=== PATIENT | male | born 1995 | race Caucasian/White ===

== ENCOUNTER 2017-12-24 17:43 | Emergency (ER) | payer OTHER, MEDICAID ==
[~2017-12-24 17:43] MED LIST: ACET5SOL2 PO; AMO250L PO; BUS5 PO; CIPR-344 PO; LEVO75TA68 PO; MELA1TAB21 PO; OFLO5DRO45 OT; PRED-1 PO; RISP0.5T82 PO; TEST200V2 IM; [UNRECOGNIZED DRUG - CODE] PO
--- NOTE | 2017-12-24 18:03 | ER Report ---
History and Physical Time Seen By MD: 17:58 Hx. of Stated Complaint: PT PRESENTS WITH HIS DAD WHO STATES PT IS HAVING AN ALLERGIC REACTION TO UNKNOWN SUBSTANCE SINCE EARLY [place] MORNING. PT HAS BEEN HAVING HIVES WITH ITCHING, AND STATES HE CAN'T BREATHE. PT HAS GOOD COLOR, NO DISTRESS. HAS BEEN TAKING BENADRYL. NOTES SWELLING OF FEET AND HANDS HPI/ROS CHIEF COMPLAINT: Rash, hives, itching, trouble breathing HISTORY OF PRESENT ILLNESS: 22-year-old male presents with his father. He appears to be developmentally delayed with Down's appearing feces. He presents with a rash which appears to be drug appearing eruption on his hands, legs, stomach and feet. Patient and his father recall no new foods or medication. He did try on apparent new pants, which were not washed prior to wearing. They're wondering if there is some dye or metal in the pants that may be causing this rash. They've been giving him Benadryl for 3 days without improvement of the rash. REVIEW OF SYSTEMS: Respiratory: As above Cardiovascular: No chest pain, no palpitations. Gastrointestinal: No vomiting, no abdominal pain. Musculoskeletal: No back pain. Allergies: Coded Allergies: No Known Drug Allergies (Unverified , 07/17/15) Home Meds Active Scripts Prednisone 10 Mg Tab (PREDNISONE 10 MG TAB) 10 Mg Tablet, 10 MG PO QDAY PRN for reduce allergic reaction, #9 2 tabs daily for 3 days 1 tab daily for 3 days Prov:XAVIER DELGADILLO DO 12/24/17 Reported Medications Testosterone Enanthate (TESTOSTERONE ENANTHATE) 200 Mg/1 Ml Vial, 300 MG IM Q30D, VIAL 10/01/16 Buspirone Hcl (Buspar) 5 Mg Tab, 10 MG PO BID 12/20/11 Levothyroxine Sodium (Synthroid) 75 Mcg Tablet, 75 MCG PO QDAY 12/20/11 Lamotrigine (Lamictal Xr) 100 Mg Tab.er.24, 100 MG PO 12/20/11 Risperidone (Risperdal) 0.5 Mg Tablet, 1.5 MG PO BID, 0 Refills 07/27/08 Discontinued Scripts Acetaminophen with Codeine (Acetaminop-Codeine 120-12 mg/5) 5 Ml Solution, 2 TSP PO Q4-6H PRN for PAIN, #120 ML Prov:LOVELY ROWLAND AUTOMOTIVE DIAGNOSTIC TECHNICIAN 07/17/15 Past Medical/Surgical History Patient has a past medical history of seizures, ASD, hypothyroid. Patient has surgical history tubes in ears, undescended testes, ASD repair. Reviewed Nurses Notes: Yes Old Medical Records Reviewed: Yes Hx Smoking: No Smoking Status: Never Smoker Exposure to Second Hand Smoke?: No Hx Substance Use Disorder: No Hx Alcohol Use: No Constitutional Vital Sign - Last 24 Hours 12/24/17 12/24/17 12/24/17 17:50 18:14 18:20 Temp 98.1 Pulse 84 89 95 Resp 20 18 18 B/P (MAP) 109/76 Pulse Ox 94 Physical Exam Vital signs stable, afebrile, pulse ox normal General Appearance: The patient is alert, has no immediate need for airway protection and no current signs of toxicity. No respiratory distress HEENT: Pupils equal and round no injection. TMs normal, oropharynx with moderate erythema, mild tonsillar hypertrophy, no exudate Respiratory: Chest is non tender, lungs are clear to auscultation. Cardiac: regular rate and rhythm Gastrointestinal: Abdomen is soft and non tender, no masses, bowel sounds normal. Musculoskeletal: Neck: Neck is supple and non tender. Extremities have full range of motion and are non tender. Skin: Maculopapular, blanching urticaria diffusely on hands, abdomen, legs and thighs as well as feet. DIFFERENTIAL DIAGNOSIS: After history and physical exam differential diagnosis was considered for allergic reaction, anaphylaxis, fixed drug eruption, urticaria, hives Medical Decision Making ED Course/Re-evaluation ED Course Patient was admitted to an examination room. H&P was done. The differential diagnoses was considered. On clinical examination. Patient has mild allergic reaction. He does have hand swelling and hives diffusely. He does note some difficulty breathing. Although he appears in no respiratory distress. On visualization. His pulse ox is normal. She is treated with prednisone 40 mg by mouth. He took Benadryl 50 mg 3 hours prior to arrival. Does not need anymore antihistamine at this time. And he is given a DuoNeb. Which improves his breathing. He feels much better. Patient's observed for nearly an hour and then discharged home. His dad is advised that he will improve greatly oh in approximately 34 hours. When the steroids kick in. He'll likely be better in the morning. Dad's advised Zyrtec for daytime antihistamine treatment to prevent drowsiness. I advised that he should worsen that they could use Benadryl. Decision to Disposition Date: Dec 24, 2017 Decision to Disposition Time: 18:10 Depart Departure Latest Vital Signs Vital Signs Date Time Temp Pulse Resp B/P (MAP) Pulse Ox O2 Delivery O2 Flow Rate FiO2 12/24/17 18:20 95 18 12/24/17 17:50 98.1 109/76 94 Impression: Primary Impression: Allergic reaction Condition: Improved Disposition: HOME OR SELF-CARE Referrals: CINDA DALEY MD (PCP) New Scripts Prednisone 10 Mg Tab (PREDNISONE 10 MG TAB) 10 Mg Tablet 10 MG PO QDAY PRN for reduce allergic reaction, #9 2 tabs daily for 3 days 1 tab daily for 3 days Prov: XAVIER DELGADILLO DO 12/24/17 Patient Instructions: Urticaria (ED) Additional Instructions: Take Zyrtec 10 mg in the morning to control the itching and hives, if that is no t enough control unit resort to Benadryl 25-50 mg every 6 hours. Follow-up with your primary care if unimproved in 2-4 days Problem Qualifiers Primary Impression: Allergic reaction Encounter type: initial encounter Qualified Codes: T78.40XA - Allergy, unspecified, initial encounter XAVIER DELGADILLO DO Dec 24, 2017 18:03
[2017-12-24] MEDS ORDERED: predniSONE 20 MG TAB PO ONE (18:05)
[2017-12-24] MEDS ORDERED: ALBUTEROL/IPRATROPIUM 3 ML NEB NEB ONE (18:05)
[2017-12-24] MEDS ORDERED: PRED-1 PO (18:12)
[2017-12-24 18:40] VITALS: BP 127/60
== END 2017-12-24 18:45 | disposition home or self-care (01) ==
LOC: ER 18:01
DX: T78.40XA Allergy, unspecified, initial encounter (principal)
CPT/HCPCS: 94640; 99283; J7512; J7620

== ENCOUNTER 2018-02-01 21:24 | Emergency (ER) | payer OTHER, MEDICAID ==
--- NOTE | 2018-02-01 21:36 | ER Report ---
History and Physical Time Seen By MD: 21:37 Hx. of Stated Complaint: PT'S MOTHER WORRIED ABOUT POSSIBLE UTI. COMPLAINT OF PT HAVING ACCIDENTS AND PAIN. HPI/ROS CHIEF COMPLAINT: possible UTI HISTORY OF PRESENT ILLNESS: This is a 22 year old male. He is having lower abdominal pain and pain with urination as well as urinating more frequently. About 24 hours of symptoms. No history of UTI in the past. No concerns about STI or abuse. He has normal bowels, no problems with diarrhea or constipation. Has no fevers or chills with this. No back or musculoskeletal pain. Allergies: Coded Allergies: No Known Drug Allergies (Unverified , 02/01/18) Home Meds Active Scripts Amoxicillin (AMOXICILLIN) 500 Mg Capsule, 1 CAP PO Q8H, #21 CAPSULE 0 Refills Prov:ADRIEL MARCUS MD 02/01/18 Reported Medications Testosterone Enanthate (TESTOSTERONE ENANTHATE) 200 Mg/1 Ml Vial, 300 MG IM Q30D, VIAL 10/01/16 Buspirone Hcl (Buspar) 5 Mg Tab, 10 MG PO BID 12/20/11 Levothyroxine Sodium (Synthroid) 75 Mcg Tablet, 75 MCG PO QDAY 12/20/11 Lamotrigine (Lamictal Xr) 100 Mg Tab.er.24, 100 MG PO 12/20/11 Risperidone (Risperdal) 0.5 Mg Tablet, 1.5 MG PO BID, 0 Refills 07/27/08 Discontinued Scripts Prednisone 10 Mg Tab (PREDNISONE 10 MG TAB) 10 Mg Tablet, 10 MG PO QDAY PRN for reduce allergic reaction, #9 2 tabs daily for 3 days 1 tab daily for 3 days Prov:XAVIER DELGADILLO DO 12/24/17 Reviewed Nurses Notes: Yes Hx Smoking: No Smoking Status: Never Smoker Exposure to Second Hand Smoke?: No Hx Substance Use Disorder: No Hx Alcohol Use: No Constitutional Vital Sign - Last 24 Hours 02/01/18 02/01/18 21:31 22:33 Temp 98.4 Pulse 92 85 Resp 18 16 B/P (MAP) 133/62 114/72 (86) Pulse Ox 92 95 O2 Delivery Room Air Room Air Physical Exam General Appearance: Alert, no acute distress. Respiratory: Lungs clear. Cardiac: regular rate and rhythm Gastrointestinal: Abdomen is soft and with tenderness in suprapubic area. Genitourinary: No pain with palpation, No bulging on hernia exam. Skin: No rashes or lesions. DIFFERENTIAL DIAGNOSIS: After history and physical exam differential diagnosis was considered for dysuria, lower abdominal pain, suspicious for likely urinary tract infection. Medical Decision Making Data Points Laboratory Hematology Test 02/01/18 21:28 Urine Color Yellow Urine Clarity Slightly-cloudy Urine pH 6.0 pH (4.8-9.5) Urine Specific [place] 1.019 Urine Protein 30 mg/dL (NEGATIVE) Urine Glucose (UA) Negative mg/dL (NEGATIVE) Urine Ketones Negative mg/dL (NEGATIVE) Urine Blood Moderate (NEGATIVE) Urine Nitrite Negative (NEGATIVE) Urine Bilirubin Negative (NEGATIVE) Urine Urobilinogen Negative mg/dL (0.2-1.9) Urine Leukocyte Esterase Trace (NEGATIVE) Urine RBC 32 /HPF (0-2/HPF) Urine WBC 26 /HPF (0-5/HPF) Urine Squamous Epithelial Cells Moderate /LPF (</=FEW) Urine Bacteria Negative /HPF (NONE-FEW) Urine Mucus Few /HPF (NONE-FEW) Chemistry Test 02/01/18 21:28 Urine Color Yellow Urine Clarity Slightly-cloudy Urine pH 6.0 pH (4.8-9.5) Urine Specific [place] 1.019 Urine Protein 30 mg/dL (NEGATIVE) Urine Glucose (UA) Negative mg/dL (NEGATIVE) Urine Ketones Negative mg/dL (NEGATIVE) Urine Blood Moderate (NEGATIVE) Urine Nitrite Negative (NEGATIVE) Urine Bilirubin Negative (NEGATIVE) Urine Urobilinogen Negative mg/dL (0.2-1.9) Urine Leukocyte Esterase Trace (NEGATIVE) Urine RBC 32 /HPF (0-2/HPF) Urine WBC 26 /HPF (0-5/HPF) Urine Squamous Epithelial Cells Moderate /LPF (</=FEW) Urine Bacteria Negative /HPF (NONE-FEW) Urine Mucus Few /HPF (NONE-FEW) Urinalysis Test 02/01/18 21:28 Urine Color Yellow Urine Clarity Slightly-cloudy Urine pH 6.0 pH (4.8-9.5) Urine Specific [place] 1.019 Urine Protein 30 mg/dL (NEGATIVE) Urine Glucose (UA) Negative mg/dL (NEGATIVE) Urine Ketones Negative mg/dL (NEGATIVE) Urine Blood Moderate (NEGATIVE) Urine Nitrite Negative (NEGATIVE) Urine Bilirubin Negative (NEGATIVE) Urine Urobilinogen Negative mg/dL (0.2-1.9) Urine Leukocyte Esterase Trace (NEGATIVE) Urine RBC 32 /HPF (0-2/HPF) Urine WBC 26 /HPF (0-5/HPF) Urine Squamous Epithelial Cells Moderate /LPF (</=FEW) Urine Bacteria Negative /HPF (NONE-FEW) Urine Mucus Few /HPF (NONE-FEW) ED Course/Re-evaluation ED Course The urinalysis is suspicious for urinary tract infection. Culture ordered. Starting on Amoxicillin. Ibuprofen and Tylenol as needed for pain. Discussed results and follow-up recommendations. Decision to Disposition Date: Feb 01, 2018 Decision to Disposition Time: 22:24 Depart Departure Latest Vital Signs Vital Signs Date Time Temp Pulse Resp B/P (MAP) Pulse Ox O2 Delivery O2 Flow Rate FiO2 02/01/18 22:33 85 16 114/72 (86) 95 Room Air 02/01/18 21:31 98.4 Impression: Primary Impression: Urinary tract infection Condition: Improved Disposition: HOME OR SELF-CARE Referrals: TU PRESCOTT APRN (PCP) New Scripts Amoxicillin (AMOXICILLIN) 500 Mg Capsule 1 CAP PO Q8H, #21 CAPSULE 0 Refills Prov: ADRIEL MARCUS MD 02/01/18 Patient Instructions: Urinary Tract Infection in Men (ED) Additional Instructions: Take the antibiotic Amoxicillin 500mg three times a day for 7 days. Take Tylenol or Ibuprofen as needed for pain. Follow-up with your regular doctor for re-evaluation in the next 7-10 days, sooner if not improving. Problem Qualifiers Primary Impression: Urinary tract infection Urinary tract infection type: acute cystitis Hematuria presence: without hematuria Qualified Codes: N30.00 - Acute cystitis without hematuria ADRIEL MARCUS MD Feb 01, 2018 21:36
[2018-02-01] MEDS ORDERED: DIAZEPAM 50 MG/10 ML MDV IVP ONE (21:50)
[2018-02-01] MEDS ORDERED: AMOXICILLIN 500 MG CAP PO ONE (22:20)
[2018-02-01] MEDS ORDERED: AMOX-362 PO (22:24)
[2018-02-01 22:33] VITALS: BP 114/72
== END 2018-02-01 22:40 | disposition home or self-care (01) ==
LOC: ER 21:57
DX: N30.00 Acute cystitis without hematuria (principal)
CPT/HCPCS: 81001; 87077; 87088; 87186; 99282